=== PATIENT | female | born 2000 | race Caucasian/White ===

== ENCOUNTER 2024-01-12 22:12 | Emergency (ER) | payer MEDICAID, SELFPAY ==
[2024-01-12 22:33] VITALS: BP 123/83; PULSE 82; RESP 18; TEMP 36.9; O2SAT 97; BMI 40.2
[2024-01-12 23:33] LABS: Influenza A PCR NEGATIVE (Negative); Influenza B PCR NEGATIVE (Negative); Resp Syncy Virus RNA Qual PCR NEGATIVE (Negative); SARS COV2 PCR INHOUSE NEGATIVE (Negative)
[2024-01-12] MEDS: Butalb/Acetamin/Caff 50/325/40 TABLET 1 TAB PO (23:46)
[2024-01-12] MEDS: Ondansetron ODT 4 MG TAB.RAPDIS TRANSLINGU (23:47)
--- NOTE | 2024-01-12 23:48 | ED.GENADULT ---
HPI - General Adult General Chief complaint: General Medical Stated complaint: nausea, weakness Time Seen by Provider: 01/12/24 23:29 Source: patient and RN notes reviewed Mode of arrival: ambulatory Limitations: no limitations History of Present Illness ED Provider: Jo EUGENE narrative: 23-year-old female with no significant past medical history presents for evaluation of general malaise, nausea. Patient reports that she started to feel congested with some nausea last night. She states that today she has felt generally unwell with continued nausea, some facial congestion/pressure and a headache She denies any cough or sore throat Denies any sick contacts Denies any fevers, chills Denies any burning with urination or abdominal pain Patient states that her boyfriend is infertile and she has been on control so she thinks it is unlikely that she is She rates her overall discomfort is 6/10 No other complaints or concerns at this time Related Data Previous Rx's ?Medication ?Instructions ?Recorded ondansetron 4 mg disintegrating 4 mg PO Q8H PRN nausea and 01/13/24 tablet vomiting #20 tabs Allergies Allergy/AdvReac Type Severity Reaction Status Date / Time No Known Allergies Allergy Verified 01/12/24 22:33 Review of Systems Constitutional: Constitutional: Reports body ache(s), Denies chills, Denies frequent falls, Reports headache(s), Reports lethargy, Reports malaise and Reports weakness Eyes: Eyes: Denies blurry vision ENT: Denies vertigo, Denies dizziness and Reports headache(s) Cardiovascular: Cardiovascular: Denies chest pain and Denies dyspnea Respiratory: Respiratory: Denies cough and Denies dyspnea Gastrointestinal: Gastrointestinal: Denies abdominal pain, Denies hematochezia, Reports nausea and Denies vomiting Musculoskeletal: Musculoskeletal: Denies back pain and Reports myalgias Integumentary/Breasts: Skin/Breast: Denies rash Neurologic: Denies vertigo, Denies dizziness, Denies frequent falls, Reports headache(s) and Reports weakness PMFSH Social History Social History Alcohol intake: current Alcohol intake frequency: holidays/special occasions only Smoked in Last 30 Days: No Use of substances other than those prescribed or required for medical reasons: No Advance Directives: No Advance Directives Information Provided: Yes Patient : No Physical Exam ED Vital Signs: Vital Signs - 24 hr 01/12/24 22:33 01/13/24 00:29 Temperature 98.5 F 98.0 F Pulse Rate 82 69 Respiratory Rate 18 16 Blood Pressure 123/83 112/71 Pulse Oximetry 97 98 Oxygen Delivery Method Room Air Room Air BMI result Body Mass Index 40.2 Const General: healthy appearing, comfortable, no acute distress, alert and awake Nutritional Appearance: well nourished Orientation/consciousness: patient oriented x3 HENMT Head: Yes normocephalic and Yes atraumatic Throat: Yes posterior oropharynx normal Eyes Eyelids: Yes eyelids normal Conjunctivae: conjunctivae normal Sclerae: sclerae normal Corneas: corneas normal Pupils: Equal, round and reactive pupils present EOM: EOMs intact bilaterally Neck Neck: Yes full ROM Resp Effort & Inspection: normal respiratory effort, able to speak in complete sentences, no audible wheezes and not labored Auscultation: clear to auscultation bilaterally Cardio Rate: regular rate Rhythm: regular rhythm GI Inspection: No distended Palpation (GI): Soft to palpation, not firm, nontender, no guarding and not rigid Skin General skin exam: no rashes or lesions noted and elasticity normal Neuro General: patient oriented x3 Cranial nerves: Yes Equal, round and reactive pupils present and Yes Bilaterally intact EOM present Cognition (Neuro): normal cognition Extrem Other: Moving all extremities well without any obvious deformities Course Reevaluation(s) Reevaluation #1: Patient reports feeling better after Zofran and Fioricet will discharge her with Zofran for the nausea. Time: 01:17 Medications Administered Discontinued Medications Generic Name Dose Route Start Last Admin Trade Name Mia PRN Reason Stop Dose Admin Acetaminophen/Butalbital/Caffeine 1 tab 01/12/24 23:35 01/12/24 23:46 Butalb/Acetamin/Caff 50/325/40 Tablet PO 01/12/24 23:36 1 tab ONCE ONE Administration Ondansetron HCl 4 mg 01/12/24 23:35 01/12/24 23:47 Ondansetron Odt 4 Mg Tab.Rapdis TRANSLINGU 01/12/24 23:36 4 mg ONCE ONE Administration Medical Decision Making Medical Decision Making MDM Narrative: 23-year-old female presents for evaluation of general complaints. Chief complaint is nausea without abdominal pain. She also complains of headache, congestion and general weakness. Her viral swabs are negative for COVID, influenza and RSV. Her lungs are clear to auscultation and she denies cough or shortness of breath, pneumonia is favored to be less likely. She has no abdominal pain or tenderness, surgical abdomen seem to be less likely. Plan for urinalysis with a urine test. Her vital signs are within normal limits. The most likely diagnosis is viral syndrome Differential Diagnosis Differential Diagnoses: The differential diagnosis associated with the presentation includes Viral syndrome Gastroenteritis COVID-19 Upper respiratory infection Sinusitis Lab Data Labs: Lab Results 01/12/24 01/12/24 Range/Units 22:49 23:48 Urine Color Yellow Urine Appearance Clear Urine pH 6.0 (5.0-9.0) Ur Specific [place] 1.025 (1.005-1.025) Urine Protein Negative (Neg-Trace) mg/dL Urine Glucose (UA) Negative (Negative) mg/dL Urine Ketones 40 (Negative) mg/dL Urine Blood Negative (Negative) Urine Nitrite Negative (Negative) Ur Leukocyte Esterase Negative (Negative) Urine RBC 0-2 (0-2) /HPF Urine WBC 0-5 (0-5) /HPF Ur Squamous Epith Cells 6-10 (0-2) /HPF Urine Bacteria 2+ (None Seen) Hyaline Casts 0-2 (0-2) /LPF Urine Test NEGATIVE (NEGATIVE) Influenza Type A (PCR) NEGATIVE (Negative) Influenza Type B (PCR) NEGATIVE (Negative) RSV RNA Qual (PCR) NEGATIVE (Negative) SARS-CoV-2 RNA (RT-PCR) NEGATIVE (Negative) Discharge Plan Discharge Clinical Impression: Headache, Nausea Patient Disposition: Home, Self-Care Instructions: Viral Syndrome (ED) Additional Instructions: You tested negative for influenza, COVID-19, RSV Your urinalysis did not show any signs of infection You are not Your symptoms are likely related to a virus Take Zofran as needed for nausea/vomiting Hydrate well Prescriptions: New ondansetron 4 mg tablet,disintegrating 4 mg PO Q8H PRN (Reason: nausea and vomiting) Qty: 20 0RF Stand Alone Forms: Work/School Release Print Language: Luxembourger
[2024-01-12 23:56] LABS: UPreg QC Valid YES; Urine Pregnancy NEGATIVE (NEGATIVE)
--- NOTE | 2024-01-12 23:56 | PC.NURSE ---
pt ambulated to bathroom with steady gait, urine sample obtained. pt medicated per sep.
[2024-01-13] LABS: Appearance Urine Clear; Color Urine Yellow; Glucose Urine UA Negative (Negative); Leukocyte Esterase Urine Negative (Negative); Nitrite Urine Negative (Negative); Specific Gravity - Urine 1.025 (1.005-1.025); Urine Blood Negative (Negative); Urine Ketones 40 mg/dL (Negative); Urine Protein Negative (Neg-Trace)
[2024-01-13 00:09] LABS: Bacteria Urine 2+ (None Seen); Hyaline Casts Urine 0-2 /LPF (0-2); RBC Urine 0-2 /HPF (0-2); WBC Urine 0-5 /HPF (0-5)
[2024-01-13 00:29] VITALS: BP 112/71; PULSE 69; RESP 16; TEMP 36.7; O2SAT 98
[2024-01-13 01:37] VITALS: BP 112/71; PULSE 69; RESP 16; TEMP 36.7; O2SAT 98
== END 2024-01-13 01:39 | disposition home or self-care (01) ==
PROVIDERS: Physician Assistant; Emergency Provider Emergency Medicine
DX: R51.9 Headache, unspecified (principal); R11.0 Nausea; Z03.818 Encounter for observation for suspected exposure to other biological agents ruled out
CPT/HCPCS: 0241U; 81001; 81025; 99283; 99284

== ENCOUNTER 2024-09-07 11:00 | Emergency (ER) | payer MEDICAID, SELFPAY ==
[2024-09-07 11:55] VITALS: BP 122/74; PULSE 86; RESP 18; TEMP 37.1; O2SAT 98; BMI 42.1
--- NOTE | 2024-09-07 11:55 | ED.GENADULT ---
HPI - General Adult General Chief complaint: Skin/Abscess/Foreign Body Stated complaint: Abdominal cyst Time Seen by Provider: 09/07/24 16:07 Source: patient Limitations: no limitations History of Present Illness ED Provider: Rhianna Jacob PA-C HPI narrative: 24 year old female presents with painful swelling an abdomen x3 days. Patient developed redness adjacent to the right side of her umbilicus, it has since increased in size. Associated warmth and tenderness to palpation. Denies drainage from the site or fever. Related Data Previous Rx's ?Medication ?Instructions ?Recorded ondansetron 4 mg disintegrating 4 mg PO Q8H PRN nausea and 01/13/24 tablet vomiting #20 tabs doxycycline hyclate 100 mg capsule 100 mg PO BID #13 caps 09/07/24 Allergies Allergy/AdvReac Type Severity Reaction Status Date / Time No Known Allergies Allergy Verified 09/07/24 11:57 Review of Systems Review of Systems: Yes all other systems are reviewed and are negative Constitutional: Constitutional: Denies fatigue and Denies fever(s) Cardiovascular: Cardiovascular: Denies chest pain and Denies dyspnea Respiratory: Respiratory: Denies dyspnea Gastrointestinal: Gastrointestinal: Denies abdominal pain, Denies nausea and Denies vomiting Integumentary/Breasts: Skin/Breast: Reports erythema, Reports skin swelling and Reports wounds Endocrine: Endocrine: Denies fatigue PMFSH Past Medical History Attestation statement: The following information was validated with the patient. Social History Social History Alcohol intake: current Alcohol intake frequency: holidays/special occasions only Advance Directives: No Advance Directives Information Provided: Yes Do you have a plan to hurt others: No Plan Physical Exam ED Vital Signs: Vital Signs - 24 hr 09/07/24 11:55 Temperature 98.8 F Pulse Rate 86 Respiratory Rate 18 Blood Pressure 122/74 Pulse Oximetry 98 Oxygen Delivery Method Room Air BMI result Body Mass Index 42.1 Const Other: Alert Orientation/consciousness: patient oriented x3 Resp Effort & Inspection: normal respiratory effort Cardio Other: Normal peripheral perfusion GI Other: Region of induration and erythema adjacent to the right side of the umbilicus, central area of fluctuance noted, no active purulent drainage Skin Other: Warm dry no rash Neuro General: patient oriented x3, gait normal, no focal motor deficits and CN's II-XI intact bilaterally Psych Other: Cooperative Course Course Course Narrative: This is a Rapid Medical Examination (RME) performed by Wei Cano PA-C in triage. Full HPI, ROS, assessment and treatment plan per primary provider in the Main ED. 24 yo female here for eval of cyst to priumbilical region of abdomen x2-3 days. reports the area is drainging. erythema is now spreading around her abd. hx of cysts to thighs/ ears - no known diagnosis. Plan: labs +/- imaging/ I&D per primary provider Medications Administered Discontinued Medications Generic Name Dose Route Start Last Admin Trade Name Mia PRN Reason Stop Dose Admin Doxycycline Monohydrate 100 mg 09/07/24 16:17 09/07/24 17:10 Doxycycline Monohydrate 100 Mg Capsule PO 09/07/24 16:18 100 mg ONCE ONE Administration Lidocaine/Epinephrine 10 ml 09/07/24 16:17 09/07/24 17:10 Lidocaine Hcl 1%/Epi 1:100,000 10 Ml Vial INFILTRATI 09/07/24 16:18 10 ml ONCE ONE Administration Procedures Abscess I/D Site: abdomen Side (if applicable): right Sedation/analgesia: none Local Anesthetic: lidocaine 1% and with epi Amount of anesthesia used (mL): 3 Technique: incised with blade and ultrasound guided Amount of fluid expressed (mL): 5 Sent for culture/gram staining?: No Irrigation: Yes Packing used?: none Medical Decision Making Medical Decision Making MDM Narrative: 24 year old female presents with painful swelling an abdomen x3 days. Patient developed redness adjacent to the right side of her umbilicus, it has since increased in size. Associated warmth and tenderness to palpation. Denies drainage from the site or fever. No chronic issues History: Per patient I have considered the following differential diagnoses: Cellulitis, purulent cellulitis, abscess, cyst Plan: It appears the patient has a small abscess that is superficial with the associated cellulitis. It will require I and D. I viewed the site with bedside ultrasound, there is a fluid collection noted. We will place on doxycycline. Labs already ordered from triage, there was no indication for imaging. I have independently reviewed the following tests: Labs: No leukocytosis, not anemic, no electrolyte abnormality noted Lab Data 09/07/24 12:23 09/07/24 12:23 Labs: Lab Results 09/07/24 Range/Units 12:23 WBC 10.8 (4.8-10.8) X10*3/uL RBC 4.93 (4.20-5.50) X10*6/uL Hgb 14.1 (12.0-16.0) g/dl Hct 42.4 (37.0-47.0) % MCV 86.0 (80.0-98.0) fL MCH 28.6 (27.0-33.0) pg MCHC 33.3 (31.0-35.0) g/dl RDW 13.7 (11.0-16.0) % Plt Count 307 (160-400) X10*3/uL MPV 9.3 L (9.4-12.3) fL Immature Gran % (Auto) 0.4 (0.0-0.4) % Neut % (Auto) 73.8 H (45-73) % Lymph % (Auto) 18.4 L (20-40) % Barron % (Auto) 6.5 (2-11) % Eos % (Auto) 0.6 (0-4) % Baso % (Auto) 0.3 (0-2) % Lymph # (Auto) 2.0 (1.2-4.9) X10*3/uL Barron # (Auto) 0.7 (0.1-1.2) X10*3/uL Eos # (Auto) 0.1 (0.0-0.4) X10*3/uL Baso # (Auto) 0.0 (0.0-0.2) X10*3/uL Abs Immat Gran (auto) 0.04 H (0.00-0.03) X10*3/uL Absolute Neuts (auto) 8.0 (2.0-8.3) x10*3/uL Absolute Nucleated RBC 0.000 (0.0-0.012) X10*3/uL Nucleated RBC % (auto) 0.0 (0.0-0.2) /100WBC ESR 7 (0-20) MM/HR Sodium 139 (135-145) mmol/L Potassium 4.1 (3.3-5.1) mmol/L Chloride 107 (96-108) mmol/L Carbon Dioxide 26 (22-29) mmol/L Anion Gap 10 L (12-20) BUN 8 L (9-16) mg/dL Creatinine 0.70 (0.5-1.4) mg/dL Estim Creat Clear Calc 142.8 Estimated GFR > 60 Random Glucose 115 (60-115) mg/dL Calcium 9.9 (8.4-10.2) mg/dL Total Bilirubin 0.3 (0.0-1.0) mg/dL AST 36 H (5-31) U/L ALT 55 H (0-31) U/L Alkaline Phosphatase 71 (39-117) U/L C-Reactive Protein 0.76 H (< or = 0.50) mg/dL Total Protein 7.7 (6.5-8.0) g/dL Albumin 4.4 (3.5-5.0) g/dL Discharge Plan Discharge Clinical Impression: Abscess Patient Disposition: Home, Self-Care Instructions: Abscess (ED), Incision and Drainage (ED) Additional Instructions: You had an abscess that was drained. See home care instructions. Take the doxycycline as directed. Follow up with your primary care provider as needed Prescriptions: New doxycycline hyclate 100 mg capsule 100 mg PO BID Qty: 13 0RF No Action ondansetron 4 mg tablet,disintegrating 4 mg PO Q8H PRN (Reason: nausea and vomiting) Qty: 20 0RF Stand Alone Forms: Work/School Release Print Language: Sao [place]an
[2024-09-07 12:29] LABS: MANUAL DIFF FLAG NO
[2024-09-07 12:30] LABS: Basophils Percent Auto 0.3 % (0-2); Eosinophils Absolute Auto 0.1 X10*3/uL (0.0-0.4); Eosinophils Percent Auto 0.6 % (0-4); Hematocrit 42.4 % (37.0-47.0); Hemoglobin 14.1 g/dl (12.0-16.0); Imm Gran Abs Auto 0.04 X10*3/uL (0.00-0.03); Imm Gran Pct Auto 0.4 % (0.0-0.4); Lymphocytes Percent Auto 18.4 % (20-40); Mean Corpuscular HGB Conc 33.3 g/dl (31.0-35.0); Mean Corpuscular Hemoglobin 28.6 pg (27.0-33.0); Mean Platelet Volume 9.3 fL (9.4-12.3); Monocytes Absolute Auto 0.7 X10*3/uL (0.1-1.2); Monocytes Percent Auto 6.5 % (2-11); Neutrophils Percent Auto 73.8 % (45-73); Platelet Count 307 X10*3/uL (160-400); Red Blood Count 4.93 X10*6/uL (4.20-5.50); Red Cell Distribution Width 13.7 % (11.0-16.0); White Blood Count 10.8 X10*3/uL (4.8-10.8)
[2024-09-07 12:48] LABS: Alanine Aminotransferase 55 U/L (0-31); Albumin Level 4.4 g/dL (3.5-5.0); Alkaline Phosphatase 71 U/L (39-117); Anion Gap 10 (12-20); Aspartate Amino Transferase 36 U/L (5-31); Bilirubin Total 0.3 mg/dL (0.0-1.0); Blood Urea Nitrogen 8 mg/dL (9-16); C Reactive Protein 0.76 mg/dL (< or = 0.50); Calcium 9.9 mg/dL (8.4-10.2); Carbon Dioxide 26 mmol/L (22-29); Chloride 107 mmol/L (96-108); Creatinine Clr Calc Pharmacy 142.8; Estimated Glomerular Filt Rate > 60; Glucose Random 115 mg/dL (60-115); Potassium 4.1 mmol/L (3.3-5.1); Sodium 139 mmol/L (135-145); Total Protein 7.7 g/dL (6.5-8.0)
[2024-09-07 13:10] LABS: Erythrocyte Sedimentation Rate 7 MM/HR (0-20)
[2024-09-07] MEDS: Lidocaine HCl 1%/Epi 1:100,000 10 ML VIAL INFILTRATI (17:10)
[2024-09-07] MEDS: Doxycycline Monohydrate 100 MG CAPSULE PO (17:10)
--- OUTSIDE RECORDS SUMMARY | 2024-09-07 17:23 | XMS_ITS | Encounter Summary ---
Author Organization [facility] Address [address] [place] [id number] Phone Care Team Providers Care Commission Specialist Name Role Phone Lexii Singh MD Primary Care Provider Unavail able Encounter Details Date Type Department Care Team (Late st Contact Info) Description 02/09/2017 Conversion Encounter [facility] - [address], [address] [place] [address] Delfino Hall MD Social History Tobacco Use Types Packs/Day Years Used Date Smoking Tobacco: Never Assessed Comments Unknown Sex and Gender Information Value Date Recorded Sex Assigned at Not on file Legal Sex Female 9:41 AM EST Gender Identity Not on file Sexual Orientation Not on file documented as of this encounter Plan of Treatment Not on file documented as of this encounter Visit Diagnoses Not on filedocumented in this encounter Care Teams Commission Specialist Relationship Specialty Start Date End Date Lexii Singh MD PCP - General Pediatrics 02/12/19 01/12/21 documented as of this encounter
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
--- OUTSIDE RECORDS SUMMARY | 2024-09-07 17:24 | XMS_ITS | Encounter Summary ---
Author Organization [employer] Address [address] [facility] 7 [place] [address] Care Team Providers Care Marine Engineering Consultant Name Role Phone Abrahan Dewey Unavailable Unavailable Abrahan Dewey Unavailable Unavailable Lea Robert DO Primary Care Provider [phone] Reason for Visit * Reason Onset Date Comments Labs Only 06/07/2024 possibly 06/07/2024 Encounter Details Date Type Department Care Team (Late st Contact Info) Description 06/07/2024 Telephone [facility] MEDICAL [address] [place] [address] Lea Robert DO [address] [place] [address] Labs Only; possibly Social History Tobacco Use Types Packs/Day Years [...] on file documented as of this encounter Miscellaneous Notes * Telephone Encounter - Monika Del Cid LPN - 06/08/2024 11:20 AM EST Pt. Notified. She will go to [facility] to have the lab drawn. * Telephone Encounter - Lea Robert DO - 06/07/2024 11:09 PM EST Order placed * Telephone Encounter - Monika Del Cid LPN - 06/07/2024 12:[address] Robert to advise. TY! * Telephone Encounter - Alida Ibarra - 06/07/2024 12:35 PM EST Patient called. Patient believes she may be . Patient may be about 8 weeks. Patient stated the last 2 months she did get her menses but it was very light and only lasted a fewdays Patient would like labs ordered to test for documented in this encounter Plan of Treatment Not on file documented as of this encounter Procedures Procedure Name Priority Date/Time Associated Diagnosis Comments HUMAN CHORIONIC GONADOTROPIN (HCG),BETA SUBUNIT, QUANT Routine 06/08/2024 12:52 PM EST Missed menses documented in this encounter Results * Human Chorionic Gonadotropin (hCG), Beta Subunit, Quantitative [[id number]] (06/08/2024 12:52 PM EST) hCG,Beta Subunit,Qnt,Seru m <1 mIU/mL [facility] 1 Comment: ? Female (Non-) ?0 - ? 5 ?(Postmenopausal) ??0 - ? 8 ? Female () ? Weeks of Gestation ? 3 ?6 - ?71 ? 4 ? 10 - ?? 750 ? 5 ?217 - ??7138 ? 6 ?158 - 11927 ? 7 ? 3697 -175738 ? 8 ?52293 -222536 ? 9 ?11716 -526038 ?10 ?56516 -687133 ?12 ?43115 -716159 ?14 ?21676 - 22188 ?15 ?94631 - 78940 ?16 ? 5324 - 55035 ?17 ? 8794 - 83831 ?18 ? 8099 16974 Cristina ECLIA methodology Blood Venous blood specimen / Unknown 06/08/2024 12:52 PM EST 06/08/2024 Narrative [facility] 1 - 06/09/2024 2:05 PM EST Performed at: ??01 - [facility] [address] ??[id number] [employer] Glazer: Jessica Monaco MD, Phone: ??[phone] us Lea Robert DO LAB BLOOD ORDERABLES Final Res ult [facility] 1 documented in this encounter Visit Diagnoses Diagnosis Missed menses- Primary documented in this encounter Additional Health Concerns Assessment Noted Time PHQ-9 Depression Total Score: 11 024 3:17 PM EDT documented as of this encounter Care Teams Marine Engineering Consultant Relationship Specialty Start Date End Date Lea Robert DO [address] [place] [address] PCP - General Family Medicine 01/23/24 Abrahan Dewey Community Health Worker 06/16/23 Abrahan Dewey Community Health Worker 06/22/23 documented as of this encounter
--- OUTSIDE RECORDS SUMMARY | 2024-09-07 17:24 | XMS_ITS | Encounter Summary ---
Author Organization [employer] Address [address] [facility] [address] [place] [address] Care Team Providers Care Stationary Boiler Fireman Name Role Phone Abrahan Dewey Unavailable Unavailable Abrahan Dewey Unavailable Unavailable Lea Robert DO Primary Care Provider [phone] Encounter Details Date Type Department Care Team (Late st Contact Info) Description 09/07/2024 Community Care Management [facility] Case Management [address] [place] [address] Jimmie Clements Social History Tobacco Use Types Packs/Day Years [...] the past 12 months, has t he [employer], gas, oil or water company threatened to [...] documented as of this encounter Care Teams Stationary Boiler Fireman Relationship Specialty Start Date End Date Lea Robert DO [address] [place] [address] PCP - General Family Medicine 01/23/24 Abrahan Dewey Community Health Worker 06/16/23 Abrahan Dewey Community Health Worker 06/22/23 documented as of this encounter
--- OUTSIDE RECORDS SUMMARY | 2024-09-07 17:24 | XMS_ITS | Clinical Summary ---
Author Organization [employer] Address [address] [facility] 7t [place] [address] Care Team Providers Care Occupational Therapy Department Chair Name Role Phone Abrahna Dewey Unavailable Unavailable Abrahan Dewey Unavailable Unavailable Lea Robert DO Primary Care Provider [phone] Allergies Active Allergy Reactions Criticality Noted Date Comments Other Hives,Rash Low 01/23/2024 Tide and Gain Laundry Soap Medications * This document contains information received from the source organization and may not represent a complete record from that organization. albuterol (ProAir HFA) 108 (90 Base) MCG/ACT inhalerIndicatio ns:Viral bronchitis Inhale 2 puffs every 4 (four) hours if needed for wheezing or shortness of breath. 8.5 g 4 Active omeprazole (PriLOSEC) [address] capsuleIndicatio ns:Gastroesophag eal reflux disease without esophagitis Take 1 capsule (20 mg) by mouth before breakfast. 90 capsule 4 Active Active Problems Problem Noted Date Diagnosed Date Gastroesophageal reflux disease without esophagi tis 01/23/2024 Weight gain 01/23/2024 Assessment & Plan (01/23/2024 11:30 PM EDT): IUD removed per pt request Per records there may be family history of thyroid disease - check today Psychological trauma history 08/11/2023 Severe anxiety 08/04/2023 Moderate major depression 08/04/2023 Housing insecurity 08/04/2023 Viral bronchitis 08/03/2023 Assessment & Plan (08/03/2023 7:58 AM EST): 3-4d hx of nausea, chest congestion, and a cough. No fever/body aches/chills. States she sometimes gets cold/hot flashes. Intermittent headache. States her ears are popping. She also feels weak. Has not had any sick contacts that she knows of. Has not been taking anything. FLU and COVID - PE benign with the exception of slight expiratory wheezing. Discussed soft foods, increased water intake. Discussed tea with honey. Discussed throat lozenges, Tylenol for pain. Discussed Robitussin/Mucinex if cough. Humidifier by bed at night. Warm salt gargles. Nasal sinus spray and Flonase if she gets sinus congestion. Discussed this is likely viral and she should start feeling better in a few days but some of the viruses have lingered over 10d. She should follow up only as needed. Prescribed Albuterol inhaler for wheezing, discussed proper usage. Prescribed tessalon perles for cough. REST!!! Encounter to establish care 06/30/2023 Assessment & Plan (06/30/2023 10:54 AM EST): Sharon was seen today as a new patient. She has not been to the doctors since at least 19yo; before that it was 17yo. She has no concerns today. Significant family hx. [facility] seeing [facility]; would like to establish Program Coordinator care with us. Has not had a Pap. PP placed her Mirena in 2019. Does smoke marijuana daily. Has cut back significantly per pt. Will obtain labwork at next follow up. Follow up in 6m. Asymptomatic gallstones 06/30/2023 Assessment & Plan (06/30/2023 10:37 AM EST): Currently asymptomatic. Family hx of gallstones. States she sometimes gets pain in the right upper abdominal pain. Not currently having pain. Has been to ER before for it. Refer to GI. Encounters * This document contains information received from the source organization and may not represent a complete record from that organization. Date Type Department Care Team Description 09/07/2024 Community Care Management [facility] Case Management [address] [place] [address] Jimmie Clements 08/09/2024 Travel 08/02/2024 Travel 07/19/2024 Telephone [facility] [address] [place] [address] Lea Robert DO Flu Symptoms; Cough from Last 3 Months Immunizations Name Administration Dates Next Due DTaP 10/27/2006, 4,2002,09/20,2002 HPV 9-Valent 04/18/2015 HPV, Quadrivalent 04/17/2014 Hep B, Adolescent or Pediatric 02/23/2003,2001,2002 Hib (PRP-T) 09/11/2003, 3,2002,07/28 IPV 10/27/2006, 3,2002,07/28 Influenza Injectable Quadriv alant Preservative Free IIV4 MDCK 05/26/2016 Influenza injectable quadriv alent preservative free 09/19/2018,07/25/2017,04/18/2015 Influenza live intranasal qu adrivalent LIAV4 04/17/2014,03/27/2013 Influenza, IIV3, injectable 09/19/2018,0 07/25/2017,05/26/2016,05/17 Influenza, Unspecified 08/11/2007,08/19/2005, MMR 05/23/2003 MMRV 10/27/2006 Meningococcal MCV4P ACYW-135 04/17/2014 Pneumococcal Conjugate PCV 7 08/17/2004, 2002,2002,07/28 Tdap 04/17/2014 Varicella 05/23/2003 Family History Medical History Relation Name Comments Colon cancer Maternal Grandmother Ludwig's esophagus Mother Cirilo-Danlos syndrome Mother hyper mobility subtype Colon cancer Mother's Sister 1 Colon cancer Mother's Sister 2 stage 4 Cirilo-Danlos syndrome Sister hyper mobility subtype Relation Name Status Comments Maternal Grandmother Mother Mother's Sister 1 Mother's Sister 2 Alive Sister Social History Tobacco Use Types Packs/Day Years Used Date Smoking Tobacco: Never Passive Smoke Exposure: Never Smokeless Tobacco: Never Tobacco Cessation:Counseling Given: Not Answered Alcohol Use Standard Drinks/Week Comments Yes 0 [...] file Not on file Not on file Last Filed Vital Signs Vital Sign Reading Time Taken Comments Blood Pressure 152/76 03/14/2024 9:00 AM EDT Pulse 96 03/14/2024 9:00 AM EDT Temperature 36.2 ??C (97.1 ??F) 03/14/2024 9:00 AM ED T Respiratory Rate 18 03/14/2024 9:00 AM EDT Oxygen Saturation 98% 03/14/2024 9:00 AM EDT Inhaled Oxygen Concentration - - Weight 104 kg (229 lb) 03/14/2024 9:00 AM EDT Height 158.8 cm (5' 2.5 ) 01/23/2024 2:07 PM EDT Body Mass Index 41.22 01/23/2024 2:07 PM EDT Plan of Treatment Health Maintenance Due Date Last Done Comments HIV Screening 2002 Lipid Panel 2002 Hepatitis C Screening 2020 COVID-19 Vaccine ( season) 2024 Influenza Vaccine (#1) 2024 9, 09/19/2018, 07/25/2017, Additional history exists DTaP/Tdap/Td Vaccines (7 - Td or Tdap) 04/17/2024 04/17/2014, 10/27/2006, 09/11/2003, Additional history exists Depression Monitoring (PHQ-9) 10/10/2024 04/11/2024, 04/11/2024 Alcohol/Substance Use Screening 01/22/2025 01/23/2024 Chlamydia and Gonorrhea Screening 01/22/2025 01/23/2024 Family Planning (PISQ) 01/22/2025 01/23/2024 SDOH Screening 01/22/2025 01/23/2024 Tobacco Screening 01/22/2025 01/23/2024 Depression Screening 04/11/2025 04/11/2024, 04/11/20 24 Pap Smear 01/22/2027 01/23/2024, 01/23/2024 Zoster Vaccines (1 of 2) 2052 RSV Patients and Patients Aged 60 years or older (1 - 1-dose 75+ series) 2077 Hepatitis B Vaccines Completed 02/23/2003, 2002, 2002 HIB Vaccines Completed 09/11/2003, 11/02, 2002, Additional history exists Pneumococcal Vaccine: Pediatrics (0 to 5 Years) and At-Risk Patients (6 to 49) Years) Aged Out 08/17/2004, 2002, 2002, Additional history exists No longer eligible based on patient's age to complete this topic IPV Vaccines Completed 10/27/2006, 02/02, 2002, Additional history exists Meningococcal Vaccine Aged Out 04/17/2014 No yakov gerber eligible based on patient's age to complete this topic HPV Vaccines Completed 04/18/2015, 04/17/2014 Hepatitis A Vaccines Aged Out No long er eligible based on patient's age to complete this topic RSV under 20 months Aged Out No longe r eligible based on patient's age to complete this topic Rotavirus Vaccines Aged Out No longer eligible based on patient's age to complete this topic Procedures Procedure Name Priority Date/Time Associated Diagnosis Comments GYNECOLOGIC PAP TEST-AGE BASED GUIDELINE CERVICAL CANCER Routine 01/23/2024 4:12 PM EDT Cervical cancer screening IMAGE GUIDED PAP, CHLAMYDIA/GONOCOCCUS , KRISTI W/RFX TO HPV Routine 01/23/2024 4:12 PM EDT from Last 3 Months or Most Recently Relevant to Health Maintenance Results * Image Guided Pap, Chlamydia/Gonococcus, KRISTI w/Reflex to HPV When ASC-U (01/23/2024 4:12 PM EDT) Diagnosis Comment [facility] 1 Comment: UNSATISFACTORY FOR EVALUATION. THIS SPECIMEN WAS RESCREENED PART OF OUR HIDE TANNER PROGRAM. Adequacy: Comment [facility] 1 Comment: Specimen processed and examined, but unsatisfactory for evaluation of epithelial abnormality because of excessive lubricant. Clinician provided ICD-10: Comment [facility] 1 Comment:Z12.4 Performed by: Comment [facility] 1 Comment:Vivian Vasquez, Cytotec hnologist ([facility]) QC Reviewed By: Comment [facility] 1 Comment:Oleksandr Ramirez, Cyto technologist ([facility]) Cytology Comment . [facility] 1 Note: Comment [facility] 1 Comment: The Pap smear is a screening test designed to aid in the detection of premalignant and malignant conditions of the uterine cervix. ??It is not a diagnostic procedure and should not be used as the sole means of detecting cervical cancer. ??Both false-positive and false-negative reports do occur. Test Methodology: CANCELED [facility] 1 Comment: The Thin Prep(R) Retail Wireless Sales Representative was unable to read this specimen. ??Therefore a manual review was performed. Result canceled by the ancillary. Comment Comment [facility] 1 Comment: The HPV DNA reflex criteria were not met with this specimen result therefore, no HPV testing was performed. Chlamydia Nuc Acid Amp Negative Negative [facility] 2 Gonococcus Nuc Acid Amp Negative Negative [facility] 2 01/23/2024 4:12 PM EDT 01/23/2024 Narrative [facility] 2 - 01/31/2024 4:06 PM EDT Performed at: ??01 - [facility] [place] [address], [address] [place] [address] ??[id number] Apartment Maintenance Technician: Luciano Pina MD, Phone: ??[phone] Performed at: ??02 - [facility] [address], [address], [place] ??[id number] Apartment Maintenance Technician: Luciano Pina MD, Phone: ??[phone] Lea Robert DO LAB CYTOLOGY ORDERABLES Edited Result - Final [facility] 2 [facility] 1 * Age Guideline for Cervical Cancer and STDs (Aptima??) (01/23/2024 4:12 PM EDT) Age Guideline ACOG Testing 21-24 [facility] 1 ThinPrep?? vial (Cervical cells) 01/23/2024 4:12 PM EDT 01/23/2024 Narrative [facility] 1 - 01/31/2024 4:06 PM EDT Performed at: ??01 - [facility] [place] [address], [address], [place], [place] ??[id number] Apartment Maintenance Technician: Luciano Pina MD, Phone: ??[phone] Specimen Comment: Source.............Cervix Specimen Comment: No. of containers..01 ThinPrep Vial Lea Robert DO LAB CYTOLOGY ORDERABLES Final Result [facility] 1 from Last 3 Months or Most Recently Relevant to Health Maintenance [facility] Care Teams Occupational Therapy Department Chair Relationship Specialty Start Date End Date Lea Robert DO [address] [place] [id number] PCP - General Family Medicine 01/23/24 Abrahan Dewey Community Health Worker 06/16/23 Abrahan Dewye Community Health Worker 06/22/23
--- OUTSIDE RECORDS SUMMARY | 2024-09-07 17:24 | XMS_ITS | Encounter Summary ---
Author Organization [employer] Address [address] [facility] 7 [place] [address] Care Team Providers Care Food Safety Scientist Name Role Phone Vivian Hurtado Primary Care Provider Unavailabl e Abrahan Dewey Unavailable Unavailable Abrahan Dewey Unavailable Unavailable Lea Robert DO Primary Care Provider [phone] Encounter Details Date Type Department Care Team (Late st Contact Info) Description 11/17/[address] [facility] MEDICAL [address] [place] [address] Vivian Hurtado PA Asymptomatic gallstones Social History Tobacco Use Types Packs/Day Years Used Date Smoking Tobacco: Never Smokeless Tobacco: Never Alcohol Use Standard Drinks/Week Comments Yes 0 (1 standard drink = 0.6 oz pur e alcohol) Occassionally Depression Answer Date Recorded Patient Health Questionnaire-9 Score 18 06/30/2023 Patient Health Questionnaire-9 Score 18 06/30/2023 Last PHQ-9: Questionnaire Data Not on file 1 08/31/2022 Housing Stability Answer Date Recorded What is your housing situation today? I do not have housing (Staying with others, in a hotel, in a fpc, living outside on the street, on a beach, in a car, or in a park 06/22/[address] you li ve. Do you have problems with any of the following? None of the above 06/22/2023 Food Insecurity Answer Date Recorded Within the past 12 months, y ou worried that your food would run out before you got money to buy more: Often true 06/16/2023 Within the past 12 months,th e food you bought just didn't last and you didn't have enough money to get more: Often true Transportation Answer Date Recorded In the past 12 months, has l ack of transportation kept you from medical appts, meetings, work or from getting things needed for daily living? Yes, it has kept me from medical appointments or getting medications. 06/22/2023 Intimate Partner Violence Answer Date R ecorded [...] the past 12 months, has t he [employer], gas, oil or water company threatened to shut off services in your home? I am not sure 06/16/2023 Depression Answer Date Recorded Patient Health Questionnaire-2 Score 6 06/30/2023 Comments Unknown Sex and Gender Information Value Date Recorded Sex Assigned at Female 06/29/2023 4:26 PM EST Legal Sex Female 8:34 PM EDT Gender Identity Female 06/29/2023 4:26 PM EST Sexual Orientation Straight 06/29/2023 4: 26 PM EST Occupation Industry Job Start Date Job End Date unemployed Not on file Not on file Not on file documented as of this encounter Plan of Treatment Not on file documented as of this encounter Procedures Procedure Name Priority Date/Time Associated Diagnosis Comments AMB REFERRAL TO GASTROENTEROLOGY Routine 11/11/2023 Asymptomatic gallstones documented in this encounter Results * Referral to Gastroenterology (11/11/2023) Vivian FERGUSON OUTPATIENT REFERRAL ORDERABLES F inal Result documented in this encounter Visit Diagnoses Diagnosis Asymptomatic gallstones documented in this encounter Additional Health Concerns Assessment Noted Time PHQ-9 Depression Total Score: 18 023 9:59 AM EST documented as of this encounter Care Teams Food Safety Scientist Relationship Specialty Start Date End Date Vivian Hurtado PA PCP - General Family Medicine 06/15/23 01/22/24 Lea Robert DO [address] [place] [address] PCP - General Family Medicine 01/23/24 Abrahan Dewey Community Health Worker 06/16/23 Abrahan Dewey Community Health Worker 06/22/23 documented as of this encounter
[2024-09-07 17:41] VITALS: BP 115/69; PULSE 95; RESP 14; TEMP 36.9; O2SAT 98
[2024-09-07 17:57] VITALS: BP 115/69; PULSE 95; RESP 14; TEMP 36.9; O2SAT 98
== END 2024-09-07 17:57 | disposition home or self-care (01) ==
PROVIDERS: Physician Assistant Medical; Emergency Provider Emergency Medicine Emergency Medical Services
DX: L02.211 Cutaneous abscess of abdominal wall (principal)
CPT/HCPCS: 10060; 36415; 80053; 85025; 85652; 86140; 99283; 99284; J2004